=== PATIENT | female | born 1985 | race Caucasian/White ===

== ENCOUNTER 2019-12-17 10:58 | Day surgery (SDC) | payer BC ==
[~2019-12-17] VITALS: Ht 170.2 cm; Wt 136.1 kg
--- NOTE | ~2019-12-17 | OR ---
[facility] [address], [place] [address] Draft DATE OF OPERATION: 12/17/2019 SURGEON: Mylene Swanson MD PREOPERATIVE DIAGNOSES: 1. Chronic calculous cholecystitis. 2. Morbid obesity (300 pounds). POSTOPERATIVE DIAGNOSES: 1. Chronic calculous cholecystitis. 2. Morbid obesity (300 pounds). PROCEDURE: 1. Laparoscopic cholecystectomy with intraoperative cholangiogram (prolonged, difficult). 2. Surgeon-directed fluoroscopy. ANESTHESIA: General endotracheal; Mart Ollie, BELL CLEANER, and local 20 mL of 0.25% Marcaine with epinephrine. INDICATION: This 34-year-old morbidly obese white woman, weighs 300 pounds. She is a patient of BERT Capellan of [place], [place]. The patient has had recurrent bouts of nausea as well as epigastric and right subcostal pain radiating into the back, lasting at least 45 minutes at a time. She underwent a gallbladder ultrasound, which showed fatty infiltration of the liver and a mobile gallstone. She has had no symptoms of biliary outlet obstruction such as jaundice or other problems. The patient does have underlying sleep apnea and uses a CPAP device. She is admitted at this time to undergo cholecystectomy, preferably by laparoscopic method. She understands the risks of bleeding, infection, bile duct injury, need for open procedure, and of course failure to cure her symptoms. She understands and she wished to proceed. FINDINGS: She had a very thick abdominal wall pannus. The liver itself did have fatty infiltration, but no evidence of cirrhosis in any way. The gallbladder is rather distended and chronically inflamed. Once excised, a single oblong rounded gallstone was noted, approximately a centimeter and half in size. The mucosa was chronically inflamed. Cholangiogram was normal. Of note, she did develop a few localized hives in the right lower abdomen and right PATIENT NAME: SINAI SALGUERO OPERATIVE REPORT DATE OF : [birth year] REPORT #: [id number] PHYSICIAN: MYLENE SWANSON MD PCP: NO PRIMARY CARE PHYSICIAN REPORT IS CONFIDENTIAL AND NOT TO BE RELEASED WITHOUT AUTHORIZATION [facility] [address], [place] [address] Draft upper abdomen, possibly related to adhesive from the drape. She had no airway problems or other issues associated with this. DESCRIPTION OF PROCEDURE: The patient was brought to the operating room, given a general endotracheal anesthetic. Preoperative antibiotic Ancef was given. Sequential compression device stockings were used and heparin subcutaneously was administered. The abdomen was prepared with chlorhexidine solution and draped sterilely. An infraumbilical incision was made and using an open Sean cannula technique, pneumoperitoneum was achieved to a level of 14 mmHg of carbon dioxide gas. Intraabdominal inspection showed no sign of ascites or carcinomatosis. The gallbladder was obscured from view due to a fatty omentum and a fatty liver. Three additional trocars were placed in usual configuration in the subxiphoid, right midclavicular, and right anterior axillary line. This allowed for location of the gallbladder, allowing it to be elevated cephalad. Table was placed in a reverse Trendelenburg position left side down, which aided in exposure. Lateral retraction of the infundibulum of gallbladder was undertaken and using electrocautery and blunt dissection quite carefully. The cystic duct was dissected free. The critical view of safety was maintained. The cystic arterial branch was identified and clipped. A clip was applied across gallbladder cystic duct junction and a transverse choledochotomy made in the cystic duct. Egress of clear bile was noted. Using an Montesinos type cholangiocatheter, intraoperative cholangiography was undertaken showing free flow of contrast in biliary tree with prompt emptying into the duodenum. There was no sign of filling defect or anomalous biliary anatomy. The catheter was removed and the cystic duct was triply clipped and divided. The gallbladder was then dissected free in a retrograde fashion using electrocautery. Entry was made into the gallbladder at the end of the dissection, which allowed for spillage of clear bile. This was suctioned free. Ultimately, the gallbladder was completely excised, placed in an endobag and extracted through the infraumbilical port site without problem. The gallbladder was opened on the back table and found to have a single oblong dark gallstone 1.5 cm in size. The mucosa showed chronic inflammatory change and cholesterolosis. There was no sign of neoplasm. Irrigation was undertaken in the subhepatic space. There was no sign of bile leak, bleeding, or other problems. The trocars were removed under direct visualization showing no bleeding. The infraumbilical fascial incision was reapproximated with interrupted 0 Vicryl suture as well as a running 0 PDS suture for added security. A 20 mL of 0.25% Marcaine with epinephrine was injected locally. The skin was then closed with interrupted 3-0 Vicryl. At the conclusion of the procedure, upon takedown of the drapes, she was noted to have some hive-like abnormalities of the skin in the right lower abdomen and right lateral abdominal area. These seem to correspond to adhesive from the drapes that cannot be said for certain. There was no progression of this and no problem with airway or breathing. Sponge, needle, and instrument counts were reported as correct x3. PATIENT NAME: SALGUEROSINAI OPERATIVE REPORT DATE OF : [birth year] REPORT #: [id number] PHYSICIAN: MYLENE SWANSON MD PCP: NO PRIMARY CARE PHYSICIAN REPORT IS CONFIDENTIAL AND NOT TO BE RELEASED WITHOUT AUTHORIZATION [address] [place], [place] [address] Draft BLOOD LOSS: Minimal. Procedure was prolonged, complicated, and difficult on the basis of her marked obesity and chronic inflammation and fatty liver lasting 3 times as long as usual. MD PA Schroeder/DUSTINL /[id number] cc: Martha Rosenthal NP Copies: MARTHA ROSENTHAL NP ~ PATIENT NAME: SINAI SALGUERO OPERATIVE REPORT DATE OF : [birth year] REPORT #: [id number] PHYSICIAN: MYLENE SWANSON MD PCP: NO PRIMARY CARE PHYSICIAN REPORT IS CONFIDENTIAL AND NOT TO BE RELEASED WITHOUT AUTHORIZATION
[~2019-12-17 10:58] MED LIST: CAL MAG ZINC +1 EAC1 PO; CYMBALTA20 MG PO; NAPROXEN500 MG PO; OMEPRAZOLE20 MG PO; PRENATAL VITAM1 EAC2 PO
[2019-12-17] MEDS ORDERED: ZYRTEC10 M3 PO (11:10)
--- NOTE | 2019-12-17 14:44 | NUR ---
12/17/19 1444 Sheets,Cristina 1434 PT ARRIVED TO PACU ON 6L VIA MASK, JAW THRUST NEEDED TO MAINTAIN AIRWAY WITH ORAL AIRWAY IN PLACE. RASH NOTED TO RIGHT SIDE OF MD ELIAN AND CLOTH FOLDER HAND AWARE. VSS. PT NONAROUSABLE TO PAINFUL STIMULI. 2X2 GAUZE PLACED OVER MID LAP SITE.
[2019-12-17] MEDS ORDERED: IBUPROFEN600 MG PO (15:03)
[2019-12-17] MEDS ORDERED: TYLENOL EXTRA500 MG PO (15:04)
[2019-12-17] MEDS ORDERED: OXYCODON-ACETA1 EAC2 PO (15:04)
--- NOTE | 2019-12-17 15:37 | NUR ---
PATIENT BACK TO ROOM FROM PACU, REPORT AT BEDSIDE FROM GUNNAR ADAM. PATIENT RATING PAIN 4/10 ON PAIN SCALE. PROVIDED ICE WATER AND SNACK. APPEARED TO BE TOLERATING WELL. ADMINISTERED ONE TAB ORAL PAIN MEDICAITON PER EMAR. PATIENT AWAKE WATCHING TV WITH AT BEDSIDE. DISCUSSED SOME DISCHARGE EDUCATION, PROVIDED SCRIPT TO ALONG WITH PT COPY OF SURGERY PICTURES.
--- NOTE | 2019-12-17 16:30 | NUR ---
PATIENT REPORTING GAS PAIN AND NAUSEA, ENCOURAGED PATIENT TO GET UP TO BATHROOM. PATIENT AMBULATED STEADY TO BATHROOM, VOIDING WELL. RATES PAIN 4/10 ON PAIN SCALE. ADMINISTERED PO IBUPROFEN PER EMAR, AND PROVIDED ICE PACK. PATIENT STATES " I DON'T THINK I AM READY TO GO HOME QUITE YET, I FEEL NERVOUS SINCE WE LIVE IN [place]" PATIENT RESTED BACK IN BED, PROVIDED WARM BLANKET. HIVES HAVE RESOLVED. LAP SITES INTACT WITH GAUZE IN PLACE. VSS. PATIETN COUGHING AND DEEP BREATHING.
--- NOTE | 2019-12-17 17:37 | NUR ---
PATIENT RATES PAIN 2/10 AND PAIN AND NAUSEA IS CONTROLLED. REMOVED ICE SECONDARY TO NOT HAVING AN ORDER FOR IT. PATIENT STATED ICE WASN'T MAKING A DIFFERENCE ANYWAYS. PATIENT NOW UP GETTING DRESSED WITH . VSS.
--- NOTE | 2019-12-17 17:50 | NUR ---
PROVIDED PATIENT WITH DISCHARGE INSTRUCTION. ANSWERED QUESTIONS AND CONCERNS. VERBALIZED UNDERSTANDING WELL. EDUARDO ADAM PROVIDED PATIENT WHEELCHAIR RIDE TO FRONT. VSS. PLACED BANDAIDS OVER STERI SITE TO REINFORCE WITH ACTIVITY OF TRAVELING HOME.
--- NOTE | 2019-12-21 13:06 | PATH ---
[facility] [address] [facility] [place], [place] [address] Signed SPECIMEN(S): A GALLBLADDER SPECIMEN SOURCE: A. GALLBLADDER CLINICAL HISTORY: Cholelithiasis, chronic cholecystitis. FINAL PATHOLOGIC DIAGNOSIS: Gallbladder, cholecystectomy: - Chronic calculous cholecystitis. JVR:queta:C2NR MICROSCOPIC EXAMINATION: Histologic sections of all submitted blocks are examined by light microscopy. These findings, together with the gross examination, support the pathologic diagnosis. GROSS DESCRIPTION: The specimen, labeled "RR," and designated on the requisition "gallbladder," is received in formalin and consists of Specimen: Previously opened gallbladder. Dimensions: 7.5 x 4.0 x 1.5 cm. Serosa: Smooth and violaceous with attached adipose tissue and 6.0 cm disruption. Cystic Duct: Unobstructed. Calculi: A single dark green bosselated/crystalline stone measuring 1.4 x 1.2 x 1.2 cm. Mucosa: Pale green-brown with yellow flecking, bright green near cystic duct. Wall thickness: Up to 0.5 cm. Lymph node: No pericystic lymph nodes are grossly identified. Additional: None. Bone Char Kiln Tender sections are submitted in cassette (A1). AT (under the direct supervision of a pathologist) The Gross Description was prepared using a voice recognition system. The report was reviewed for accuracy; however, sound-alike word errors, addition and/or deletions may occur. If there is any question about this report, please contact Client Services. PERFORMING LABORATORY: The technical component was performed by [employer], Adam Galo, PATIENT NAME: SINAI SALGUERO PATHOLOGY DATE OF : [birth year] REPORT #: [id number] PHYSICIAN: BALA PATHOLOGY PCP: NO PRIMARY CARE PHYSICIAN REPORT IS CONFIDENTIAL AND NOT TO BE RELEASED WITHOUT AUTHORIZATION [facility] [address] [place], [place] [address] [place] [address] (Welding Engineer: Radha Velasquez MD; CLIA# [id number]). Professional interpretation was [place] [address] (Welding Engineer: Felipe Magaña M.D.). Diagnostician: Felipe Magaña MD Pathologist Electronically Signed 12/21/2019 Copies: ~ PATIENT NAME: SINAI SALGUERO PATHOLOGY DATE OF : [birth year] REPORT #: [id number] PHYSICIAN: BALA SANCHEZ PCP: NO PRIMARY CARE PHYSICIAN REPORT IS CONFIDENTIAL AND NOT TO BE RELEASED WITHOUT AUTHORIZATION
== END 2019-12-17 17:45 | disposition home or self-care (01) ==
LOC: DS 10:58
PROVIDERS: Surgery
PROC: BF13YZZ Fluoroscopy of Gallbladder and Bile Ducts using Other Contrast (ICD-10-PCS; 2019-12-17)
PROC: 0FT44ZZ Resection of Gallbladder, Percutaneous Endoscopic Approach (ICD-10-PCS; principal; 2019-12-17 13:00)
DX: K80.10 Calculus of gallbladder with chronic cholecystitis without obstruction (principal); I10 Essential (primary) hypertension; K21.9 Gastro-esophageal reflux disease without esophagitis; F32.9 Major depressive disorder, single episode, unspecified; F41.9 Anxiety disorder, unspecified; E66.01 Morbid (severe) obesity due to excess calories; G47.33 Obstructive sleep apnea (adult) (pediatric); Z91.012 Allergy to eggs; Z88.5 Allergy status to narcotic agent; Z79.899 Other long term (current) drug therapy; Z68.42 Body mass index [BMI] 45.0-49.9, adult; Z99.89 Dependence on other enabling machines and devices
CPT/HCPCS: 00790; 74300; A9270; J0690; J1100; J1644; J1885; J2001; J2405; J2704; J3010; J7121; Q9967

== ENCOUNTER 2020-05-25 06:05 | Day surgery (SDC) | payer BC ==
--- NOTE | 2020-05-17 00:43 | EKG ---
[facility] [address] [facility] [place], [place] [address] Signed Normal sinus rhythm Normal ECG When compared with ECG of 15-DEC-2019 15:04, No significant change was found Confirmed by ELEUTERIO CASTAÑEDA MD ([id number]) on 05/17/2020 12:43:28 AM Electronically Signed By: ELEUTERIO CASTAÑEDA MD 05/17/20 0043 PATIENT NAME: ROGELIO SALGUEROLAKHWINDER WALKERGH Electrocardiogram DATE OF : 89 PHYSICIAN: ELEUTERIO CASTAÑEDA MD REPORT #: [id number] REPORT IS CONFIDENTIAL AND NOT TO BE RELEASED WITHOUT AUTHORIZATION
[~2020-05-25] VITALS: Ht 170.2 cm; Wt 129.0 kg
--- NOTE | ~2020-05-25 | OR ---
[facility] [address] [place], [place] [address] Draft DATE OF OPERATION: 05/25/2020 SURGEON: Cheryl Chatman MD RIPRAP MAN: Albert Galan M.D. PREOPERATIVE DIAGNOSES: 1. Pelvic pain. 2. Morbid obesity. POSTOPERATIVE DIAGNOSES: 1. Pelvic pain. 2. Morbid obesity. 3. Normal pelvis. PROCEDURE: Laparoscopy. ANESTHESIA: General ET. ESTIMATED BLOOD LOSS: Minimal. DRAINS: None. INDICATIONS AND FINDINGS: The patient is a 35-year-old female, who is status post prior section x2, who has been having ongoing pelvic pain over the last year. She was initially tried with control pills, which worsened her migraines. The Mirena IUD was then placed. Subsequent to this, she was continued to have some intermittent pelvic pain. Ultrasound has been normal. At the time of surgery, exam under anesthesia was normal, though it was limited by her morbid obesity. On laparoscopy, the pelvis itself appeared completely normal. There was no evidence of any endometriosis. There was minimal scarring in the anterior cul-de-sac from her prior sections. There was a tiny bit of scarring of the sigmoid at the left tubal area, but nothing unusual at all. DESCRIPTION OF PROCEDURE: PATIENT NAME: SINAI SALGUERO OPERATIVE REPORT DATE OF : [birth year] REPORT #: [id number] PHYSICIAN: CHERYL CHATMAN MD PCP: SABINA CUI CERTIFIED MASTER SAFE TECHNICIAN REPORT IS CONFIDENTIAL AND NOT TO BE RELEASED WITHOUT AUTHORIZATION [facility] [address] [place], [place] [address] Draft The patient was prepped and draped in the dorsal lithotomy position. The Gillett-Neck speculum was placed and the anterior lip of the cervix was then visualized and grasped with a single-tooth tenaculum. The Lety cannula was then placed and the speculum removed. Attention was directed above. The infraumbilical area was injected with 0.5% Marcaine plain. An incision was made with a knife, and each layer was serially elevated and incised until the fascia was opened and identified and stay sutures were placed using 0-Vicryl. Peritoneum was opened bluntly. The Sean cannula was then placed. The balloon inflated. Placement of the scope confirmed proper placement. The CO2 was then introduced into the abdomen. When the abdomen was appropriately distended, the secondary port was placed in the left side. This area could not be transilluminated due to the thickness of the abdominal wall. A second port was placed pretty bilaterally, injected with the Marcaine incision made with a knife and the trocar placed under direct vision, this was a 5 mm port. Following this, the pelvis was visualized and no evidence of any endometriosis or pathology was identified. Following this, the procedure was terminated. The instruments removed from the abdomen after allowing as much CO2 as possible to escape. The fascial incision at the umbilicus was reidentified and closed with a running suture of 0-Vicryl. The skin incisions were closed with subcuticular sutures of 3-0 Vicryl Rapide. Following this, the instruments were removed from below. There was no evidence of any ongoing bleeding from the cervix. Davis catheter which had been placed at the beginning of the case was removed at this time as well. All sponge and needle counts were correct. She was taken to the recovery room in good condition. Cheryl Chatman MD PJW/MODL /[id number] cc: ANDRE Medellin MD Copies: SABINA CUI NP PATIENT NAME: SINAI SALGUERO OPERATIVE REPORT DATE OF : [birth year] REPORT #: [id number] PHYSICIAN: CHERYL CHATMAN MD PCP: SABINA CUI NP REPORT IS CONFIDENTIAL AND NOT TO BE RELEASED WITHOUT AUTHORIZATION [address] [address] Draft ALBERT GALAN MD ~ PATIENT NAME: SINAI SALGUERO OPERATIVE REPORT DATE OF : [birth year] REPORT #: [id number] PHYSICIAN: CHERYL CHATMAN MD PCP: SABINA CUI NP REPORT IS CONFIDENTIAL AND NOT TO BE RELEASED WITHOUT AUTHORIZATION
[~2020-05-25 06:05] MED LIST changes: -CYMBALTA20 MG PO; +CYMBALTA30 MG PO; +IBUPROFEN600 MG PO; +OXYCODON-ACETA1 EAC2 PO; +TYLENOL EXTRA500 MG PO; +ZYRTEC10 M3 PO
--- NOTE | 2020-05-25 08:09 | NUR ---
05/25/20 0809 Nadege Toro 0803: PT ARRIVES TO PACU. SHE IS SLIGHTY DROWSY, BUT NOT REPORTING ANY PAIN.
--- NOTE | 2020-05-25 08:41 | NUR ---
ICED WATER AND APPLESAUCE IS GIVEN. CALL LIGHT IS WITHIN REACH. SPOUSE IS AT THE BEDSIDE.
[2020-05-25] MEDS ORDERED: IBU800 MG PO (08:58)
[2020-05-25] MEDS ORDERED: ONDANSETRON ODT8 MG PO ×2 (08:59)
[2020-05-25] MEDS ORDERED: PERCOCET 5-3251 EACH PO ×2 (08:59)
--- NOTE | 2020-05-25 10:30 | NUR ---
STEADY ON FEET WITH ONE PERSON STAND BY ASSIST FOR AMBULATION TO BR. DENIES NAUSEA. REPORTS 2/10 ABD PAIN WITH AMBULATION. VOIDS 50ML CLOUDY URINE. RETURNS TO BED. WATER REFILLED.
--- NOTE | 2020-05-25 11:07 | NUR ---
DISCHARGE INSTRUCTIONS GIVEN. PATIENT AND SPOUSE VERBALIZE UNDERSTANDING. PATIENT IS GETTING DRESSED IN THE PRESENCE OF HER SPOUSE.
--- NOTE | 2020-05-25 11:39 | NUR ---
LE 1115: PATIENT TRANSFERS HERSELF TO THE WHEELCHAIR AND THEN TO PERSONAL VEHICLE AND SHE TOLERATES THAT WELL.
== END 2020-05-25 11:15 | disposition home or self-care (01) ==
LOC: DS 06:05
PROVIDERS: ATTEND Obstetrics & Gynecology
PROC: 0UJD4ZZ Inspection of Uterus and Cervix, Percutaneous Endoscopic Approach (ICD-10-PCS; principal; 2020-05-25 06:45)
DX: R10.2 Pelvic and perineal pain (principal); F32.9 Major depressive disorder, single episode, unspecified; G47.33 Obstructive sleep apnea (adult) (pediatric); E66.01 Morbid (severe) obesity due to excess calories; Z79.899 Other long term (current) drug therapy; Z88.8 Allergy status to other drugs, medicaments and biological substances; Z68.42 Body mass index [BMI] 45.0-49.9, adult
CPT/HCPCS: 00840; 93005; 93010; J0330; J1100; J1644; J1885; J2250; J2405; J2704; J2765; J3010; J7121

== ENCOUNTER 2020-05-29 14:09 | Emergency (ER) | payer BC ==
[~2020-05-29] VITALS: Ht 170.2 cm; Wt 128.8 kg
[~2020-05-29 14:09] MED LIST changes: +IBU800 MG PO; +ONDANSETRON ODT8 MG PO; +PERCOCET 5-3251 EACH PO
[2020-05-29] MEDS ORDERED: CLEOCIN HCL300 MG PO (16:44)
[2020-05-29] MEDS ORDERED: PERCOCET 5-3251 EACH PO (17:09)
== END 2020-05-29 17:09 | disposition home or self-care (01) ==
LOC: ED 14:09
DX: T81.41XA Infection following a procedure, superficial incisional surgical site, initial encounter (principal); Z88.8 Allergy status to other drugs, medicaments and biological substances; Z88.5 Allergy status to narcotic agent; Z79.899 Other long term (current) drug therapy
CPT/HCPCS: 10060; 80053; 83605; 85025; 99284-25

== ENCOUNTER 2024-10-09 16:52 | Emergency (ER) | payer BC ==
[~2024-10-09] VITALS: Ht 170.2 cm; Wt 139.8 kg
[~2024-10-09 16:52] MED LIST changes: +CLEOCIN HCL300 MG PO
[2024-10-09] MEDS ORDERED: CYCLOBENZAPRINE10 MG PO (18:41)
[2024-10-09 18:47] VITALS: BP 132/82
== END 2024-10-09 18:47 | disposition home or self-care (01) ==
LOC: ED 16:52
DX: O99.891 Other specified diseases and conditions complicating pregnancy (principal); M54.42 Lumbago with sciatica, left side; M54.41 Lumbago with sciatica, right side; Z3A.11 11 weeks gestation of pregnancy; Z88.5 Allergy status to narcotic agent; Z88.8 Allergy status to other drugs, medicaments and biological substances
CPT/HCPCS: 99283

== ENCOUNTER 2025-01-22 14:01 | Emergency (ER) | payer BC ==
[~2025-01-22] VITALS: Ht 170.2 cm; Wt 145.5 kg
[~2025-01-22 14:01] MED LIST changes: +CYCLOBENZAPRINE10 MG PO
[2025-01-22] MEDS ORDERED: VITAFOL-OB+DHA1 EACH PO (14:16)
[2025-01-22] MEDS ORDERED: ASPIRIN81 MG PO (14:16)
[2025-01-22 14:54] LABS: BASOPHILS 0.4 % (0.1-1.2); EOSINOPHILS 1.4 % (0.7-5.8); LYMPHOCYTES 11.8 % (19.3-51.7); MCH 31.1 PG (25.6-32.2); MCHC 34.5 g/dL (32.2-35.5); MCV 90.4 fL (79.4-94.8); MONOCYTES 6.5 % (4.7-12.5); NEUTROPHILS 79.5 % (34.0-71.1); RBC 3.95 M/uL (3.93-5.22)
[2025-01-22 15:03] LABS: BLOOD/HGB, URINE LARGE (Negative); KETONE, URINE NEGATIVE (Negative); LEUK ESTERASE, URINE NEGATIVE (negative); NITRITE, URINE NEGATIVE (negative)
[2025-01-22 15:08] LABS: EPITHELIAL CELLS, URINE SQUAMOUS 1+ /lpf (0-1+)
[2025-01-22 15:09] LABS: BACTERIA, URINE NONE SEEN /hpf (negative); CASTS, URINE NONE SEEN \\lpf; CRYSTALS, URINE NONE SEEN (0-1+); REFLEX CULTURE, URINE No (No)
[2025-01-22 15:19] LABS: ALT (SGPT) 15.0 U/L (14-59); AST (SGOT) 14.0 U/L (15-37); GLOMERULAR FILTRATION RATE,EST 130.0 mL/min (>60); PROTEIN, TOTAL 6.4 g/dL (6.4-8.2); TSH, 3RD GENERATION 1.705 uIU/mL (0.358-3.740); UREA NITROGEN 3.0 mg/dL (7-18)
[2025-01-22] MEDS ORDERED: SODIUM CHLORIDE 0.9% 1,000 ML IV ONE (15:45)
[2025-01-22 18:29] VITALS: BP 120/81
--- NOTE | 2025-01-23 10:42 | EKG ---
[facility] [address] [facility] [place] [address] Signed Sinus tachycardia Otherwise normal ECG When compared with ECG of 16-MAY-2020 16:32, Vent. rate has increased BY 35 BPM Confirmed by Joanna Sarabia MD ([id number]) on 01/23/2025 10:42:27 AM Electronically Signed By: JOANNA SARABIA MD 01/23/25 1042 PATIENT NAME: SINAI SALGUERO Electrocardiogram DATE OF : [birth year] PHYSICIAN: JOANNA SARABIA MD REPORT #: [id number] REPORT IS CONFIDENTIAL AND NOT TO BE RELEASED WITHOUT AUTHORIZATION
== END 2025-01-22 18:31 | disposition home or self-care (01) ==
LOC: ED 14:01
PROVIDERS: Emergency Medicine
DX: O99.891 Other specified diseases and conditions complicating pregnancy (principal); M79.661 Pain in right lower leg; Z3A.30 30 weeks gestation of pregnancy; Z79.899 Other long term (current) drug therapy
CPT/HCPCS: 36415; 80053; 81001; 84443; 85025; 85379; 93005; 93010; 93971; J7030

== ENCOUNTER 2025-04-15 09:56 | Inpatient (IN) | payer BC ==
[~2025-04-15] VITALS: Ht 170.2 cm; Wt 147.0 kg
[~2025-04-15 09:56] MED LIST changes: +ASPIRIN81 MG PO; +VITAFOL-OB+DHA1 EACH PO
[2025-04-21] MEDS ORDERED: LACTATED RINGER'S 1,000 ML IV SCH ×2 (05:00→09:47)
[2025-04-21] MEDS ORDERED: LACTATED RINGER'S 1,000 ML IV PRN (05:45)
[2025-04-21] MEDS ORDERED: TRANEXAMIC ACID IN NACL,ISO-OS 0 ML IV ONE (06:51)
[2025-04-21] MEDS ORDERED: OXYTOCIN 10 UNITS/ML VIAL ONE (06:59)
[2025-04-21] MEDS ORDERED: Ropivacaine HCl 0.5% 30 ML VIAL ONE (06:59)
[2025-04-21] MEDS ORDERED: LIDOCAINE HCL 2% 5 ML SDV ONE (06:59)
[2025-04-21] MEDS ORDERED: BUPIVACAINE 0.75% IN DEXTROSE 2 ML AMP ONE (06:59)
[2025-04-21] MEDS ORDERED: fentaNYL citrate 100 MCG/2 ML VIAL ONE (06:59)
[2025-04-21] MEDS ORDERED: DEXAMETHASONE SOD PHOS 4 MG/ML VIAL ONE (06:59)
[2025-04-21] MEDS ORDERED: SODIUM CHLORIDE 0.9% 20 ML IV ONE (06:59)
[2025-04-21] MEDS ORDERED: CEFAZOLIN SODIUM 3 GM in SODIUM CHLORIDE 0.9% 100 ML IV SCH (07:00)
[2025-04-21] MEDS ORDERED: MORPHINE SULFATE 1 MG/ML VIAL ONE (07:00)
[2025-04-21] MEDS ORDERED: LIDOCAINE HCL 1% 5 ML SDV INJ ONE (07:00)
[2025-04-21] MEDS ORDERED: IBLOOD GLUCOSE TEST STRIP 1 EA TEST VI PRN (07:00)
[2025-04-21 07:05] LABS: AMPHETAMINES, URINE NEGATIVE (NEGATIVE); BARBITURATES, URINE NEGATIVE (NEGATIVE); BENZODIAZEPINE, URINE NEGATIVE (NEGATIVE); CANNABINOID, URINE NEGATIVE (NEGATIVE); COCAINE, URINE NEGATIVE (NEGATIVE); ECSTASY, URINE NEGATIVE (NEGATIVE); FENTANYL, URINE NEGATIVE (NEGATIVE); METHADONE, URINE NEGATIVE (NEGATIVE); OPIATES, URINE NEGATIVE (NEGATIVE); OXYCODONE, URINE NEGATIVE (NEGATIVE); PHENCYCLIDINE, URINE NEGATIVE (NEGATIVE)
[2025-04-21 07:06] VITALS: BP 137/79
[2025-04-21 07:14] LABS: MCH 30.6 PG (25.6-32.2); MCHC 33.6 g/dL (32.2-35.5); MCV 90.9 fL (79.4-94.8); RBC 3.96 M/uL (3.93-5.22)
[2025-04-21 07:32] LABS: ABO O; ANTIBODY SCREEN NEGATIVE; RH POSITIVE
[2025-04-21] MEDS ORDERED: LACTATED RINGER'S 1,000 ML IV ONE (08:09)
[2025-04-21] MEDS ORDERED: PHENYLEPHRINE HCL IN 0.9% NACL 1 MG/10 ML SYR ONE (08:26)
[2025-04-21] MEDS ORDERED: PROCHLORPERAZINE EDISYLATE 10 MG/2 ML VIAL IV PRN ×2 (08:30→09:45)
[2025-04-21] MEDS ORDERED: KETOROLAC TROMETHAMINE 30 MG/ML VIAL IV PRN (08:30)
[2025-04-21] MEDS ORDERED: HYDROmorphone HCL 1 MG/ML SYR IV PRN (08:30)
[2025-04-21] MEDS ORDERED: NALOXONE HCL 0.4 MG SYR IV PRN (08:30)
[2025-04-21] MEDS ORDERED: OXYCODONE/APAP 5/325 TAB PO PRN (09:45)
[2025-04-21] MEDS ORDERED: HYDROCODONE/ACETA 5/325 TAB PO PRN (09:45)
[2025-04-21] MEDS ORDERED: PROMETHAZINE HCL 25 MG TAB PO PRN (09:45)
[2025-04-21] MEDS ORDERED: OXYTOCIN/0.9 % SODIUM CHLORIDE 500 ML IV SCH (09:45)
[2025-04-21] MEDS ORDERED: METOCLOPRAMIDE HCL 10 MG/2 ML SDV IV PRN (09:45)
[2025-04-21] MEDS ORDERED: PROMETHAZINE HCL 25 MG SUPP PR PRN (09:45)
--- NOTE | 2025-04-21 09:47 | NUR ---
04/21/25 0901 Berkley Mcmillan 0952-PATIENT ARRIVED TO ROOM 103 FOR RECOVERY. PATIENT AWAKE DENIES NAUSEA REPORTS "A LITTLE PAIN ON RIGHT SIDE NOT UNCOMFORTABLE" RA 95% RR EVEN. LR WITH 2O PITOCIN INFUSING TO LEFT ARM CDI. SR HR 90'S-LOW 100'S. DAD AT BEDSIDE HOLDING BABY. NO DRAINAGE TO MER PAD. 0943-JOB COMPOSITOR AT BEDSIDE.
[2025-04-21 10:01] VITALS: BP 127/73
[2025-04-21] MEDS ORDERED: SIMETHICONE 80 MG CHEW PO SCH (11:00)
[2025-04-21] MEDS ORDERED: KETOROLAC TROMETHAMINE 30 MG/ML VIAL IV SCH (14:00)
[2025-04-21] MEDS ORDERED: ENOXAPARIN SODIUM 40 MG/0.4 ML SYR SUB-Q SCH (16:00)
[2025-04-21 18:49] LABS: PROTEIN, RANDOM URINE 31.0 mg/dL (NOT ESTABLISHED)
[2025-04-21 19:02] LABS: MCH 30.4 PG (25.6-32.2); MCHC 33.9 g/dL (32.2-35.5); MCV 89.5 fL (79.4-94.8); RBC 3.92 M/uL (3.93-5.22)
[2025-04-21 19:19] LABS: ALT (SGPT) 4.0 U/L (14-59); AST (SGOT) 20.0 U/L (15-37); GLOMERULAR FILTRATION RATE,EST 120.0 mL/min (>60); LACTATE DEHYDROGENASE 206.0 U/L (81-234); PROTEIN, TOTAL 6.0 g/dL (6.4-8.2); UREA NITROGEN 5.0 mg/dL (7-18)
[2025-04-21] MEDS ORDERED: SENNOSIDES/DOCUSATE 1 EA TAB PO SCH (21:00)
[2025-04-22] MEDS ORDERED: IBUPROFEN 600 MG TAB PO SCH (02:00)
[2025-04-22 06:15] LABS: MCH 30.9 PG (25.6-32.2); MCHC 34.0 g/dL (32.2-35.5); MCV 91.1 fL (79.4-94.8); RBC 3.49 M/uL (3.93-5.22)
--- NOTE | 2025-04-22 09:27 | OR ---
[facility] [address] [place] [address] Signed DATE OF OPERATION: 04/21/2025 SURGEON: Lauren Snyder DO PREOPERATIVE DIAGNOSES: 1. Intrauterine at 39 weeks' gestation. 2. History of prior sections. 3. Desires bilateral salpingectomy. 4. Morbid obesity with BMI > 50 POSTOPERATIVE DIAGNOSES: 1. Intrauterine at 39 weeks' gestation. 2. History of prior sections. 3. Desires bilateral salpingectomy. 4. Morbid obesity with BMI > 50 PROCEDURES PERFORMED: 1. Repeat low transverse section. 2. Bilateral salpingectomy. SLEEVE TURNER: DIRECTOR OF WEB MARKETING. ANESTHESIA: Spinal, with postoperative TAP block. COMPLICATIONS: None. QUANTITATIVE BLOOD LOSS: 330 mL. DRAINS: Davis to gravity. SPECIMENS: Cord blood for routine analysis. FINDINGS: Delivery of viable female , 8 pounds 15 ounces with Apgars of 8 and 9, born in Electronically Signed By: LAUREN SNYDER DO (JD) 04/22/25 0927 PATIENT NAME: SINAI SORTO OPERATIVE REPORT DATE OF : [birth year] REPORT #: [id number] PHYSICIAN: LAUREN SNYDER) PCP: LAUREN SNYDER) REPORT IS CONFIDENTIAL AND NOT TO BE RELEASED WITHOUT AUTHORIZATION [address] [address] Signed the ROT position with clear fluid and no nuchal cord. Normal uterus, tubes, and ovaries. Postoperative placement of Prevena wound VAC system prophylactically. INDICATIONS: Ms. Sorto is a very pleasant 40-year-old female, who presents for repeat low transverse section and bilateral salpingectomy. complicated by prior C-sections and advanced maternal age as well as obesity. She and her partner have completed childbearing and desired bilateral salpingectomy. Risks, benefits, and alternatives were discussed in detail with the patient. The patient understands and wishes to proceed with the procedure. TECHNIQUE: The patient was taken to the OR, where a time-out was performed to confirm correct patient and correct procedure. Spinal anesthesia was adequately established. The patient was prepped and draped in the supine position with a bump under right hip. A Davis catheter was inserted. Ancef 3 g were given preoperatively per SCIP protocol. ICPs were on and running. Once neuraxial anesthesia was noted to be adequate, Pfannenstiel skin incision was made through the prior scar and carried down to the fascia. The fascia was nicked in the midline and fascial incision was extended bilaterally using curved Espinal scissors. Fascia was grasped with Karolyn's, elevated, and the underlying rectus dissected off bluntly and sharply. The rectus was gently divided in the midline and peritoneum was entered bluntly. Peritoneal incision was extended cephalad, caudad using blunt and sharp dissection. No significant adhesions were noted. An Antonio self retractor was placed and lower uterine segment was identified. Hysterotomy was performed using a surgical scalpel and upon rupture of the amnion, clear amniotic fluid was noted. Hysterotomy was extended bilaterally using blunt dissection. The surgeon's hand was placed in the uterine cavity and the head delivered in the ROT position with the assistance of fundal pressure. The remainder of the delivered easily and was vigorous and cried upon delivery with clear fluid and no nuchal cord noted. Cord was doubly clamped and cut and the handed to the waiting pediatric team for further care. Cord blood was obtained for routine analysis. The placenta was expressed intact with a centrally inserted three-vessel cord. Uterine cavity was cleared of any remaining products of conception or clot. Pitocin was administered per protocol. Hysterotomy was repaired in two layers using 0 Monocryl, the first being a running locked layer and the second being a running nonlocked imbricated layer in the vertical manner. Excellent hemostasis was appreciated. Attention was turned to bilateral salpingectomies and the patient again expresses her desire for this procedure. The right fallopian tube was grasped with Kiko's at the fimbriated end in midportion. LigaSure bipolar device was used to fulgurate and divide the mesosalpinx with excellent hemostasis. The tube was dissected along the mesosalpinx and amputated at the cornua and sent to pathology for further evaluation. The process was repeated on the left without difficulty and complete excision of the left fallopian tube. Excellent Electronically Signed By: LAUREN PENDLETON) DO OSCAR 04/22/25 0927 PATIENT NAME: SINAI SORTO OPERATIVE REPORT DATE OF : [birth year] REPORT #: [id number] PHYSICIAN: LAUREN SNYDER) PCP: LAUREN SNYDER) REPORT IS CONFIDENTIAL AND NOT TO BE RELEASED WITHOUT AUTHORIZATION [address] [address] Signed hemostasis was appreciated bilaterally. The uterus was returned to the abdomen and all clot and debris were removed from the cul-de-sac, the gutters in the pelvis. Once hemostasis was again appreciated, the Antonio self retractor was removed and the peritoneum was reapproximated using 2-0 Vicryl in a running nonlocked manner. Rectus was loosely plicated in the midline with 3 interrupted sutures of 0 Vicryl and excellent hemostasis of the rectus was appreciated. Fascia was reapproximated using 0 Vicryl in a running nonlocked manner. Subcu was made hemostatic with judicious use of Bovie electrocautery and then was reapproximated using 3-0 Vicryl in a running nonlocked manner. The skin was reapproximated using 3-0 Vicryl Rapide in the subcuticular stitch. Excellent hemostasis and cosmesis were appreciated. The Prevena negative pressure wound dressing was applied prophylactically given the patient's BMI and risk factors for wound complication. Excellent seal was appreciated. The uterus was then Crede'd eight for scant amount of blood, and the patient remained in the OR for postoperative TAP blocks. Sponge, needle, and instrument counts were correct x2 at the end of the procedure. DO CHICO Vega/MODL /[id number] Copies: ~ Electronically Signed By: LAUREN SNYDER DO (JD) 04/22/25 0927 PATIENT NAME: SINAI SORTO OPERATIVE REPORT DATE OF : [birth year] REPORT #: [id number] PHYSICIAN: LAUREN SNYDER (ERICA) PCP: LAUREN SNYDER (ERICA) DO REPORT IS CONFIDENTIAL AND NOT TO BE RELEASED WITHOUT AUTHORIZATION
[2025-04-23 09:10] LABS: MCH 30.7 PG (25.6-32.2); MCHC 33.3 g/dL (32.2-35.5); MCV 92.1 fL (79.4-94.8); RBC 3.55 M/uL (3.93-5.22)
[2025-04-23 09:34] LABS: ALT (SGPT) 15.0 U/L (14-59); AST (SGOT) 21.0 U/L (15-37); GLOMERULAR FILTRATION RATE,EST 115.0 mL/min (>60); LACTATE DEHYDROGENASE 165.0 U/L (81-234); PROTEIN, TOTAL 5.7 g/dL (6.4-8.2); UREA NITROGEN 8.0 mg/dL (7-18)
--- NOTE | 2025-04-23 16:34 | PATH ---
[facility] [address], [place] [address] Signed SPECIMEN(S): A FALLOPIAN TUBES, BILATERAL SPECIMEN SOURCE: A. FALLOPIAN TUBES, BILATERAL CLINICAL HISTORY: Family history of ovarian/breast cancer, BMI greater than 30, repeat FINAL PATHOLOGIC DIAGNOSIS: Bilateral fallopian tubes: - Two segments of benign fimbriated oviduct. JVR MICROSCOPIC EXAMINATION: Histologic sections of all submitted blocks are examined by light microscopy. These findings, together with the gross examination, support the pathologic diagnosis. GROSS DESCRIPTION: The specimen, labeled and designated "Sorto, bilateral fallopian tubes," is received in formalin and consists of two red-brown fimbriated fallopian tube segments (7.0 cm in length and ranging in diameter from 0.8 to 1.4 cm, and 8.0 cm in length and ranging in diameter from 0.7 to 1.5 cm). One of the segments is arbitrarily inked blue. Both segments are serially sectioned to reveal red-brown soft cut surfaces. Mess Attendant sections including the fimbriae entirely are submitted in cassette (A1-A2). VB (under the direct supervision of a pathologist) The Gross Description was prepared using a voice recognition system. The report was reviewed for accuracy; however, sound-alike word errors, addition and/or deletions may occur. If there is any question about this report, please contact Client Services. ADDITIONAL NOTES: Immunohistochemical and/or in situ hybridization studies if performed in this case included appropriate positive controls that reacted as expected. This test was developed and its performance characteristics determined by [facility]. It has not been cleared or approved by the U.S. Food and Drug Administration. The FDA has determined that such clearance or approval is not necessary. This test is used for clinical purposes. It should not be regarded PATIENT NAME: SINAI SORTO PATHOLOGY DATE OF : 89 REPORT #: [id number] PHYSICIAN: [facility] PCP: LAUREN MOORE ([place]) DO REPORT IS CONFIDENTIAL AND NOT TO BE RELEASED WITHOUT AUTHORIZATION [facility] [address], [place] [address] Signed as investigational or for research. [facility] is certified under the Clinical Laboratory Improvement Amendments of 1988 (CLIA) as qualified to perform high complexity clinical laboratory testing. PERFORMING LABORATORY: Technical component was performed by [facility], [address] [place] [id number] (CLIA# [id number]). Professional interpretation was performed by [facility] - [place] - [address] [place] [id number] (CLIA#: [id number]). Diagnostician: Felipe Magaña MD Pathologist Electronically Signed 04/23/2025 Copies: ~ PATIENT NAME: SINAI SORTO PATHOLOGY DATE OF : 89 REPORT #: [id number] PHYSICIAN: [facility] PCP: LAUREN MOORE ([place]) DO REPORT IS CONFIDENTIAL AND NOT TO BE RELEASED WITHOUT AUTHORIZATION
== END 2025-04-23 13:15 | disposition home or self-care (01) | DRG 785 ==
LOC: FBC 04-21 05:30
PROVIDERS: Obstetrics & Gynecology; ADMIT Obstetrics & Gynecology; ATTEND Obstetrics & Gynecology
PROC: 10D00Z1 Extraction of Products of Conception, Low, Open Approach (ICD-10-PCS; principal; 2025-04-21 07:30)
PROC: 3E03329 Introduction of Other Anti-infective into Peripheral Vein, Percutaneous Approach (ICD-10-PCS; principal; 2025-04-21 07:30)
PROC: 0UT70ZZ Resection of Bilateral Fallopian Tubes, Open Approach (ICD-10-PCS; principal; 2025-04-21 07:30)
PROC: 10907ZC Drainage of Amniotic Fluid, Therapeutic from Products of Conception, Via Natural or Artificial Opening (ICD-10-PCS; 2025-04-21 07:30)
DX: O34.211 Maternal care for low transverse scar from previous cesarean delivery (principal); Z3A.39 39 weeks gestation of pregnancy; Z37.0 Single live birth; O99.214 Obesity complicating childbirth; Z30.2 Encounter for sterilization; O14.94 Unspecified pre-eclampsia, complicating childbirth; Z90.49 Acquired absence of other specified parts of digestive tract; Z98.890 Other specified postprocedural states; Z90.89 Acquired absence of other organs; Z88.5 Allergy status to narcotic agent; Z88.8 Allergy status to other drugs, medicaments and biological substances; Z79.82 Long term (current) use of aspirin; Z79.899 Other long term (current) drug therapy
CPT/HCPCS: 01961; 36415; 80053; 80307; 82565; 82570; 83615; 84156; 84550; 85027; 86850; 86900; 86901; A9270; J0165; J0688; J1100; J1650; J1885; J2003; J2274; J2405; J2590; J2795; J3010; J7121